=== PATIENT | male | born 1985 | race Caucasian/White ===

== ENCOUNTER 2020-09-27 11:51 | Emergency (ER) | payer OTHER ==
[2020-09-27] MEDS ORDERED: ILOTYCIN1 GM OD (14:30)
== END 2020-09-27 15:07 | disposition home or self-care (01) ==
LOC: FER 11:51
DX: S05.01XA Injury of conjunctiva and corneal abrasion without foreign body, right eye, initial encounter (principal); F17.290 Nicotine dependence, other tobacco product, uncomplicated; W22.8XXA Striking against or struck by other objects, initial encounter; Y92.89 Other specified places as the place of occurrence of the external cause; Y99.0 Civilian activity done for income or pay
CPT/HCPCS: 99282